=== PATIENT | female | born 1960 | race Caucasian/White ===

== ENCOUNTER 2023-03-06 22:14 | Emergency (ER) | payer MEDICARE ==
[2023-03-06] MEDS ORDERED: SODIUM CHLORIDE 0.9% 1,000 ML IV STA (22:30)
--- NOTE | 2023-03-06 22:31 | ED ---
Fall HPI - General Chief Complaint: Fall Stated Complaint: Fall, Head Injury Time Seen by Provider: 03/06/23 22:18 Source: patient, EMS, RN notes reviewed, old records reviewed Mode of arrival: EMS Limitations: no limitations - History of Present Illness Initial Comments: This is a 62-year-old female earlier today. She presents today for evaluation of [place]. Patient bilateral leg weakness generalized weakness dizziness hasn't been feeling well. Patient. He'll stumble prior to arrival and did hit her head falling to the ground. Patient is complaining of current currently severe headache without loss of consciousness. Positive nausea no vomiting. 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 ROS Other: All systems not noted in ROS Statement are negative. 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 Absent: atraumatic (1 cm head laceration) Eye exam: Present: normal appearance, PERRL, EOMI. Absent: scleral icterus, conjunctival injection, periorbital swelling ENT exam: Present: normal exam, mucous membranes moist Neck exam: Present: normal inspection. Absent: tenderness, meningismus, lymphadenopathy Respiratory exam: Present: normal lung sounds bilaterally. Absent: respiratory distress, wheezes, rales, rhonchi, stridor Cardiovascular Exam: Present: regular rate, normal rhythm, normal heart sounds. Absent: systolic murmur, diastolic murmur, rubs, gallop, clicks GI/Abdominal exam: Present: soft, normal bowel sounds. Absent: distended, tenderness, guarding, rebound, rigid Extremities exam: Present: normal inspection, full ROM, normal capillary refill. Absent: tenderness, pedal edema, joint swelling, calf tenderness Back exam: Present: normal inspection Neurological exam: Present: alert, oriented X3, CN II-XII intact Psychiatric exam: Present: normal affect, normal mood Skin exam: Present: warm, dry, intact, normal color. Absent: rash Course Vital Signs 03/06/23 03/07/23 22:17 03:04 Temperature 98.2 F 97.7 F Pulse Rate 66 59 L Respiratory 18 16 Rate Blood Pressure 129/67 119/64 O2 Sat by Pulse 99 95 Oximetry - Reevaluation(s) Reevaluation #1: 03/06/23 23:23 Medical records reviewed Reevaluation #2: Patient symptoms are unchanged Reevaluation #3: Patient informed results and questions answered Reevaluation #4: 03/06/23 23:23 Was pt. sent in by a medical professional or institution (Dr. PA, COMMERCIAL INTELLIGENCE MANAGER, urgent care, hospital, or retirement...) When possible be specific @ -no Did you speak to anyone other than the patient for history (EMS, parent, family, police, friend...)? What history was obtained from this source @ -no Did you review nursing and triage notes (agree or disagree)? Why? @ -agree Are old charts reviewed (outside hosp., previous admission, EMS record, old EKG, old radiological studies, urgent care reports/EKG's, retirement records)? Report findings @ -yes Differential Diagnosis (chest pain, altered mental status, abdominal pain women, abdominal pain men, vaginal bleeding, weakness, fever, dyspnea, syncope, headache, dizziness, GI bleed, back pain, seizure, CVA, palpatations, mental health, musculoskeletal)? @ -prior EKG interpreted by me (3pts min.). @ -no X-rays interpreted by me (1pt min.). @ -no CT interpreted by me (1pt min.). @ -yes U/S interpreted by me (1pt. min.). @ -no What testing was considered but not performed or refused? (CT, X-rays, U/S, labs)? Why? @ -none What meds were considered but not given or refused? Why? @ -none Did you discuss the management of the patient with other professionals (professionals i.e. , PA, COMMERCIAL INTELLIGENCE MANAGER, lab, RT, psych nurse, social media editor, family lawyer, teacher, chief technology officer, case technician)? Give summary @ -no Was smoking cessation discussed for >3mins.? @ -no Was critical care preformed (if so, how long)? @ -no Were there social determinants of health that impacted care today? How? (Homelessness, low income, unemployed, alcoholism, drug addiction, transportation, low edu. Level, literacy, decrease access to med. care, fdc, rehab)? @ -none Was there de-escalation of care discussed even if they declined (Discuss DNR or withdrawal of care, Hospice)? DNR status @ -no What co-morbidities impacted this encounter? (DM, HTN, Smoking, COPD, CAD, Cancer, CVA, ARF, Chemo, Hep., AIDS, mental health diagnosis, sleep apnea, morbid obesity)? @ -none Was patient admitted / discharged? Hospital course, mention meds given and route, prescriptions, significant lab abnormalities, going to OR and other pert inent info. @ -62 female to the emergency department for fall, patient of fall from standing with head injury with laceration which is repaired. Patient can be discharged home Discharge Undiagnosed new problem with uncertain prognosis? @ -no Drug Therapy requiring intensive monitoring for toxicity (Heparin, Nitro, Insulin, Cardizem)? @ -no Were any procedures done? @ -no Diagnosis/symptom? @ -Fall, weakness, head laceration Acute, or Chronic, or Acute on Chronic? @ -Acute Uncomplicated (without systemic symptoms) or Complicated (systemic symptoms)? @ -Complicated Side effects of treatment? @ -no Exacerbation, Progression, or Severe Exacerbation? @ -exacerbation Poses a threat to life or bodily function? How? (Chest pain, USA, PR, pneumonia, PE, COPD, DKA, ARF, appy, cholecystitis, CVA, Diverticulitis, Homicidal, Suicidal, threat to staff... and all critical care pts) @ -yes Reevaluation #5: 03/06/23 23:23 Differential Weakness: Hypoglycemia, shock, sepsis, hyponatremia, anemia, infection, PR, ETOH, adverse medicine reaction, overdose, stroke, this is not meant to be an all-inclusive list. Procedures - Laceration Laceration #1 Consent Obtained: verbal consent Site: upper extremity Size (cm): 1 Description: linear Size of Sutures: other (star) Complications: pain Patient Tolerated Procedure: well Medical Decision Making - Medical Decision Making 62 female fall downstairs with head laceration. Patient has laceration repaired here in the ER and can be discharged home - Lab Data Result diagrams: 03/06/23 23:20 03/06/23 23:20 Lab Results 03/06/23 03/06/23 03/06/23 Range/Units 23:20 23:20 23:20 WBC 3.7 L (3.8-10.6) k/uL RBC 3.91 (3.80-5.40) m/uL Hgb 13.5 (11.4-16.0) gm/dL Hct 40.4 (34.0-46.0) % MCV 103.4 H (80.0-100.0) fL MCH 34.4 (25.0-35.0) pg MCHC 33.3 (31.0-37.0) g/dL RDW 16.2 H (11.5-15.5) % Plt Count 256 (150-450) k/uL MPV 9.4 Neutrophils % 56 % Lymphocytes % 34 % Monocytes % 7 % Eosinophils % 1 % Basophils % 0 % Neutrophils # 2.1 (1.3-7.7) k/uL Lymphocytes # 1.2 (1.0-4.8) k/uL Monocytes # 0.3 (0-1.0) k/uL Eosinophils # 0.0 (0-0.7) k/uL Basophils # 0.0 (0-0.2) k/uL Anisocytosis Slight Macrocytosis Moderate Sodium 136 L (137-145) mmol/L Potassium 3.4 L (3.5-5.1) mmol/L Chloride 102 (98-107) mmol/L Carbon Dioxide 29 (22-30) mmol/L Anion Gap 5 mmol/L BUN 9 (7-17) mg/dL Creatinine 0.79 (0.52-1.04) mg/dL Est GFR (CKD-EPI)AfAm >90 (>60 ml/min/1.73 sqM) Est GFR (CKD-EPI)NonAf 80 (>60 ml/min/1.73 sqM) Glucose 121 H (74-99) mg/dL Calcium 9.2 (8.4-10.2) mg/dL Phosphorus 3.6 (2.5-4.5) mg/dL Magnesium 2.0 (1.6-2.3) mg/dL Total Bilirubin 0.6 (0.2-1.3) mg/dL AST 45 H (14-36) U/L ALT 37 H (4-34) U/L Alkaline Phosphatase 85 (38-126) U/L Troponin I <0.012 (0.000-0.034) ng/mL Total Protein 6.3 (6.3-8.2) g/dL Albumin 3.4 L (3.5-5.0) g/dL - Radiology Data Radiology results: report reviewed (CT brain is negative for acute disease), image reviewed Disposition Clinical Impression: Weakness, Fall, Laceration, Scalp laceration Disposition: HOME SELF-CARE Condition: Good Instructions (If sedation given, give patient instructions): Weakness (ED) Is patient prescribed a controlled substance at d/c from ED?: No Referrals: Chandrika Moon DO [Primary Care Provider] - 1-2 days Time of Disposition: 00:45
[2023-03-07 00:13] LABS: ALT 37 U/L (4-34); AST 45 U/L (14-36); African American GFR (CKD) >90 (>60 ml/min/1.73 sqM); Albumin 3.4 g/dL (3.5-5.0); Alkaline Phosphatase 85 U/L (38-126); Anion Gap 5 mmol/L; Blood Urea Nitrogen 9 mg/dL (7-17); Calcium 9.2 mg/dL (8.4-10.2); Carbon Dioxide 29 mmol/L (22-30); Chloride 102 mmol/L (98-107); Glucose 121 mg/dL (74-99); Non-African American GFR(CKD) 80 (>60 ml/min/1.73 sqM); Phosphorus 3.6 mg/dL (2.5-4.5); Potassium 3.4 mmol/L (3.5-5.1); Sodium 136 mmol/L (137-145); Total Bilirubin 0.6 mg/dL (0.2-1.3); Total Protein 6.3 g/dL (6.3-8.2)
[2023-03-07 00:43] LABS: Anisocytosis Slight; Basophils % (A) 0 %; Eosinophils % (A) 1 %; HCT 40.4 % (34.0-46.0); HGB 13.5 gm/dL (11.4-16.0); Lymphocytes # (A) 1.2 k/uL (1.0-4.8); Lymphocytes % (A) 34 %; MCH 34.4 pg (25.0-35.0); MCHC 33.3 g/dL (31.0-37.0); MCV 103.4 fL (80.0-100.0); Macrocytosis Moderate; Mean Platelet Volume 9.4; Monocytes # (A) 0.3 k/uL (0-1.0); Monocytes % (A) 7 %; Neutrophils # (A) 2.1 k/uL (1.3-7.7); Neutrophils % (A) 56 %; Platelet Count 256 k/uL (150-450); RBC 3.91 m/uL (3.80-5.40); RDW 16.2 % (11.5-15.5); WBC 3.7 k/uL (3.8-10.6)
--- NOTE | 2023-03-07 01:48 | CT ---
EXAM: CT Head Without Intravenous Contrast CLINICAL HISTORY: ITS.REASON CT Reason: weakness TECHNIQUE: Axial computed tomography images of the head/brain without intravenous contrast. CTDI is 49.2 mGy and DLP is 1125.4 mGy-cm. This CT exam was performed using one or more of the following dose reduction techniques: automated exposure control, adjustment of the mA and/or kV according to patient size, and/or use of iterative reconstruction technique. COMPARISON: No relevant prior studies available. FINDINGS: Brain: No hemorrhage or mass effect. Senescent changes. Basal ganglia calcification. Ventricles: No hydrocephalus. Bones/joints: Unremarkable. Soft tissues: Unremarkable. Sinuses: No air fluid level. Mastoid air cells: Clear. IMPRESSION: No acute hemorrhage, hydrocephalus, or mass effect.
[2023-03-07 03:11] VITALS: BP 119/64; PULSE 59; RESP 16; TEMP 97.7
== END 2023-03-07 03:05 | disposition home or self-care (01) ==
LOC: EC 22:14
DX: S01.01XA Laceration without foreign body of scalp, initial encounter (principal); R53.1 Weakness; F17.200 Nicotine dependence, unspecified, uncomplicated; W18.30XA Fall on same level, unspecified, initial encounter
CPT/HCPCS: 12001; 36415; 70450; 80053; 83735; 84100; 84484; 85025; 96360; 96361; 99285